=== PATIENT | female | born 1975 | race African-American/Black ===

== ENCOUNTER 2017-08-04 00:51 | Emergency (ER) | payer SELFPAY ==
[~2017-08-04] VITALS: Ht 154.9 cm; Wt 156.6 kg
[~2017-08-04 00:51] MED LIST: NO HOME MEDICATIONS
[2017-08-04] MEDS ORDERED: SODIUM CHLORIDE 0.9% 1,000 ML IV ONE (03:12)
[2017-08-04] MEDS ORDERED: ONDANSETRON HCL 4MG/2ML VIAL IV ONE (03:30)
[2017-08-04] MEDS ORDERED: CLINDAMYCIN 600 MG in DEXTROSE 5% WATER 50 ML IV ONE (03:30)
[2017-08-04] MEDS ORDERED: MORPHINE SULFATE 4 MG/ML CPJ (NOT FOR IM USE) IV ONE ×3 (03:30→07:30)
[2017-08-04] MEDS ORDERED: DEXAMETHASONE 10 MG/ML VIAL IV ONE (03:30)
[2017-08-04 03:38] LABS: CLARITY URINE CLOUDY (CLEAR); COLOR URINE YELLOW (YELLOW); GLUCOSE URINE NEGATIVE (NEGATIVE); KETONES URINE TRACE (NEGATIVE); LEUKOCYTE ESTERASE URINE NEGATIVE (NEGATIVE); NITRITE URINE NEGATIVE (NEGATIVE); OCCULT BLOOD URINE NEGATIVE (NEGATIVE); PH URINE 5.5 (4.5-8.0); PROTEIN URINE TRACE (NEGATIVE); SPECIFIC GRAVITY URINE 1.039 (1.005-1.030)
[2017-08-04 03:39] LABS: BASOPHILS % 0.9 % (0.0-2.0); EOSINOPHILS % 1.2 % (0.0-5.0); HEMATOCRIT. 40.3 % (36.0-48.0); HEMOGLOBIN. 13.7 g/dL (12.0-16.0); LYMPHOCYTES % 20.2 % (20.0-50.0); MEAN CORPUSCULAR HEMOGLOBIN 31.9 pg (28.0-32.0); MEAN CORPUSCULAR VOLUME 93.9 fL (81.0-99.0); MEAN PLATELET VOLUME 7.4 fl (7.4-10.4); MONOCYTES % 10.2 % (2.0-8.0); NEUTROPHILS % 67.5 % (40.0-76.0); PLATELET 484 x1000/uL (130-400); RED CELL DISTRIBUTION WIDTH 14.2 % (11.6-14.6)
[2017-08-04 03:43] LABS: CHLORIDE 103 mEq/L (98-107)
[2017-08-04 03:45] LABS: PROTHROMBIN TIME 10.9 sec (9.4-11.6)
[2017-08-04 03:51] LABS: CARBON DIOXIDE 25 mEq/L (21-32); ETHANOL BLOOD < 10 mg/dL
[2017-08-04 03:51] LABS: *AMPHETAMINES SCREEN URINE NEGATIVE (NEGATIVE); *BARBITURATES SCREEN URINE NEGATIVE (NEGATIVE); *BENZODIAZEPINES SCREEN URINE NEGATIVE (NEGATIVE); METHADONE URINE SCREEN NEGATIVE (NEGATIVE); OPIATES URINE SCREEN NEGATIVE (NEGATIVE); PHENCYCLIDINE URINE SCREEN NEGATIVE (NEGATIVE)
[2017-08-04 04:19] LABS: *COCAINE SCREEN URINE PRESUMTIVE POSITIVE (NEGATIVE); CANNABINOID URINE SCREEN PRESUMTIVE POSITIVE (NEGATIVE)
[2017-08-04] MEDS ORDERED: TETRACAINE/BENZOCAINE/BUTAMBEN 20 GM SPRAY MM SCH (05:45)
[2017-08-04] MEDS ORDERED: MORPHINE SULFATE 2 MG/ML CPJ (NOT FOR IM USE) IV ONE (07:15)
[2017-08-04 09:03] VITALS: BP 155/95
== END 2017-08-04 09:05 | disposition home or self-care (01) ==
LOC: ER 01:09
DX: J36 Peritonsillar abscess (principal); I10 Essential (primary) hypertension; F12.10 Cannabis abuse, uncomplicated; F17.200 Nicotine dependence, unspecified, uncomplicated; E66.01 Morbid (severe) obesity due to excess calories; Z88.6 Allergy status to analgesic agent
CPT/HCPCS: 10060; 36415; 80053; 80305; 81001; 81025; 85025; 85610; 87070; 87430; 96361; 96365; 96375; 96376; 99285; G0482; J1100; J2270; J2405; J3490; J7030; Z7610; J7060

== ENCOUNTER 2024-03-28 01:12 | Inpatient (IN) | payer MEDICAID ==
[~2024-03-28] VITALS: Ht 154.9 cm; Wt 167.8 kg
[~2024-03-28 01:12] MED LIST changes: +ALBU6.7H15 INH; +AZIT500T8 MT; -NO HOME MEDICATIONS; +P20 MT; +REV20 MT
[2024-03-28 03:09] LABS: DIFFERENTIAL COMMENT 0; EOSINOPHILS % 0.4 % (0.0-5.0); HEMATOCRIT. 37.8 % (36.0-48.0); HEMOGLOBIN. 12.1 g/dL (12.0-16.0); LYMPHOCYTES % 16.7 % (20.0-50.0); MEAN CORPUSCULAR HEMOGLOBIN 32.5 pg (28.0-32.0); MEAN CORPUSCULAR VOLUME 101.6 fL (81.0-99.0); MEAN PLATELET VOLUME 7.2 fl (7.4-10.4); MONOCYTES % 4.1 % (2.0-8.0); NEUTROPHILS % 77.8 % (40.0-76.0); PLATELET 365 x1000/uL (130-400); RED BLOOD CELL COUNT 3.72 mill/uL (4.2-5.4); RED CELL DISTRIBUTION WIDTH 14.5 % (11.6-14.6); WHITE BLOOD COUNT 7.9 x1000/uL (4.5-11.0)
[2024-03-28 03:24] LABS: CARBON DIOXIDE 21 mEq/L (21-32); CHLORIDE 105 mEq/L (98-107); POTASSIUM 4.3 mEq/L (3.5-5.1); SODIUM 139 mEq/L (136-145)
[2024-03-28 03:25] LABS: CALCIUM 9.4 mg/dL (8.7-10.4)
[2024-03-28 03:30] LABS: ETHANOL BLOOD 169 mg/dL (<10); GLUCOSE 83 mg/dL (70-105); UREA NITROGEN BLOOD 17 mg/dL (9-23)
[2024-03-28 03:31] LABS: TROPONIN I HIGH SENSITIVITY 28 ng/L (3.0-34)
[2024-03-28] MEDS ORDERED: ONDANSETRON HCL 4MG/2ML INJ IV PRN (04:45)
[2024-03-28] MEDS ORDERED: IPRATROPIUM/ALBUTEROL 0.5-3(2.5)MG/3ML NEB HHN PRN (04:45)
[2024-03-28] MEDS ORDERED: MAGNESIUM/ALUMINUM HYDROXIDE/SIMETHICONE 30ML UDC PO PRN (04:45)
[2024-03-28] MEDS ORDERED: CLONIDINE 0.1MG TABLET PO PRN (04:45)
[2024-03-28] MEDS ORDERED: ACETAMINOPHEN 325MG TABLET PO PRN (04:45)
[2024-03-28] MEDS ORDERED: LORAZEPAM 2MG/ML INJ IV PRN ×2 (04:45→17:30)
[2024-03-28] MEDS: FUROSEMIDE 40MG/4ML VIAL IVP NR (05:23)
[2024-03-28 05:31] LABS: TRIGLYCERIDE 65 mg/dL (0-150)
[2024-03-28 05:32] LABS: LDL CHOLESTEROL 121 mg/dL (5-100)
[2024-03-28 05:33] LABS: AMMONIA < 17 uMol/L (<32); CHOLESTEROL 195 mg/dL (<200); HDL CHOLESTEROL 65 mg/dL (>65); LACTIC ACID 2.3 mmol/L (0.4-2.0)
[2024-03-28 05:36] LABS: T4 FREE 0.87 ng/dL (0.89-1.76); THYROID STIMULATING HORMONE 0.12 uIU/mL (0.55-4.78)
[2024-03-28 05:38] LABS: D-DIMER 0.56 mg/L FEU (<0.50)
[2024-03-28] MEDS: MVI, ADULT NO.1 10 ML, THIAMINE HCL 100 MG, FOLIC ACID 1 MG in SODIUM CHLORIDE 0.9% 1,0... IV SCH (06:14)
[2024-03-28 06:29] LABS: CLARITY URINE CLEAR (CLEAR); COLOR URINE YELLOW (YELLOW); GLUCOSE URINE NEGATIVE (NEGATIVE); KETONES URINE NEGATIVE (NEGATIVE); LEUKOCYTE ESTERASE URINE NEGATIVE (NEGATIVE); NITRITE URINE NEGATIVE (NEGATIVE); OCCULT BLOOD URINE NEGATIVE (NEGATIVE); PH URINE 5.5 (4.5-8.0); PROTEIN URINE 1+ (NEGATIVE); SPECIFIC GRAVITY URINE 1.017 (1.005-1.030); UROBILINOGEN URINE 0.2 E.U./dL (0.2-1.0)
[2024-03-28 07:16] LABS: *AMPHETAMINES SCREEN URINE NEGATIVE (NEGATIVE)
[2024-03-28 07:17] LABS: *BARBITURATES SCREEN URINE NEGATIVE (NEGATIVE); *COCAINE SCREEN URINE PRESUMPTIVE POSITIVE (NEGATIVE); METHADONE URINE SCREEN NEGATIVE (NEGATIVE); OPIATES URINE SCREEN NEGATIVE (NEGATIVE); PHENCYCLIDINE URINE SCREEN NEGATIVE (NEGATIVE)
[2024-03-28 07:18] LABS: ECSTASY MDMA SCREEN URINE NEGATIVE (NEGATIVE)
[2024-03-28] MEDS: PANTOPRAZOLE SODIUM 40 MG/VIAL IV SCH (08:34)
[2024-03-28 08:41] LABS: SQUAMOUS EPITHELIAL CELL URINE 1+ /lpf (RARE/1+)
[2024-03-28 08:42] LABS: BACTERIA URINE 2+
[2024-03-28 08:44] LABS: MUCUS URINE TRACE /lpf (< = 2+); RBC URINE 0-2 /hpf (0-2); WBC URINE 0-2 /hpf (0-2)
[2024-03-28 09:27] LABS: TROPONIN I HIGH SENSITIVITY 29 ng/L (3.0-34)
[2024-03-28 09:28] LABS: CREATINE KINASE 175 IU/L (34-145)
[2024-03-28] MEDS: ACETAMINOPHEN 325MG TABLET PO PRN (09:43)
[2024-03-28 16:59] LABS: TROPONIN I HIGH SENSITIVITY 26 ng/L (3.0-34)
[2024-03-28 17:00] LABS: CREATINE KINASE 182 IU/L (34-145)
[2024-03-28] MEDS ORDERED: ACETYLCYSTEINE 200MG/ML 20% VIAL 4ML INH NR (17:30)
[2024-03-28 17:53] VITALS: BP 11/58; PULSE 84; RESP 20; TEMP 97.8
[2024-03-28] MEDS ORDERED: FUROSEMIDE 100MG/10ML VIAL IVP SCH (18:00)
[2024-03-28] MEDS: IPRATROPIUM/ALBUTEROL 0.5-3(2.5)MG/3ML NEB HHN SCH (18:00)
[2024-03-28 19:18] VITALS: BP 111/58; PULSE 84; RESP 20; TEMP 97
[2024-03-28 20:00] VITALS: BP 120/63; PULSE 70; RESP 20; TEMP 98
[2024-03-28 20:36] VITALS: PULSE 77; RESP 20; O2SAT 99
[2024-03-28] MEDS: ATORVASTATIN CALCIUM 40MG TABLET PO SCH (20:45)
[2024-03-28] MEDS: ENOXAPARIN 40MG/0.4ML SYR SUBCUT SCH (20:46)
[2024-03-28] MEDS: BUDESONIDE 0.5MG/2ML NEB HHN SCH (21:19)
[2024-03-28] MEDS: CHLORDIAZEPOXIDE 5 MG CAPSULE PO SCH (21:22)
[2024-03-28 22:08] LABS: ALANINE AMINOTRANSFERASE 17 IU/L (10-49); ALBUMIN 4.6 g/dL (3.2-4.8); ASPARTATE AMINOTRANSFERASE 18 IU/L (<34); BILIRUBIN DIRECT 0.2 mg/dL (<=3.0); BILIRUBIN TOTAL 0.5 mg/dL (0.1-1.0); PROTEIN TOTAL 7.3 g/dL (6.0-8.3)
[2024-03-28 22:39] LABS: BG BASE EXCESS -1.9 mmol/L (-2.0-2.0); BG CARBOXYHEMOGLOBIN 1.8 % (0.5-1.5); BG DEOXYHEMOGLOBIN 14.5 % (0.0-5.0); BG FRACTION INSPIRED OXYGEN 21; BG HCO3 ACT 23.4 mmol/L (22.0-26.0); BG OXYGEN SATURATION 85.2 % (92.0-98.5); BG OXYHEMOGLOBIN 83.7 % (94.0-97.0); BG PCO2 42.2 mmHg (35.0-45.0); BG PH 7.362 (7.350-7.450); BG PO2 52.8 mmHg (75.0-100.0); BG SAMPLE SITE RIGHT RADIAL; BG TOTAL HEMOGLOBIN 12.6 g/dL (12.0-18.0); BG VENT MODE ROOM AIR
[2024-03-29] VITALS (10 sets, daily range): BP systolic 110–135; BP diastolic 53–73; PULSE 65–96; RESP 14–20; TEMP 97.2–98; O2SAT 97–98
[2024-03-29 05:47] LABS: CHLORIDE 103 mEq/L (98-107); POTASSIUM 4.8 mEq/L (3.5-5.1); SODIUM 137 mEq/L (136-145)
[2024-03-29 05:48] LABS: CARBON DIOXIDE 30 mEq/L (21-32)
[2024-03-29 05:49] LABS: CALCIUM 9.4 mg/dL (8.7-10.4)
[2024-03-29 05:53] LABS: GLUCOSE 108 mg/dL (70-105); UREA NITROGEN BLOOD 30 mg/dL (9-23)
[2024-03-29 05:56] LABS: PHOSPHORUS 3.8 mg/dL (2.5-4.9)
[2024-03-29 06:11] LABS: BASOPHILS % 1.4 % (0.0-2.0); HEMOGLOBIN. 11.8 g/dL (12.0-16.0); LYMPHOCYTES % 30.6 % (20.0-50.0); MEAN CORPUSCULAR HGB CONC 32.8 g/dL (31.0-37.0); MEAN CORPUSCULAR VOLUME 97.7 fL (81.0-99.0); MEAN PLATELET VOLUME 7.8 fl (7.4-10.4); MONOCYTES % 9.7 % (2.0-8.0); NEUTROPHILS % 55.3 % (40.0-76.0); PLATELET 328 x1000/uL (130-400); RED BLOOD CELL COUNT 3.69 mill/uL (4.2-5.4); RED CELL DISTRIBUTION WIDTH 13.8 % (11.6-14.6); WHITE BLOOD COUNT 5.9 x1000/uL (4.5-11.0)
[2024-03-29] MEDS: LEVOTHYROXINE SODIUM 25MCG TABLET PO SCH ×2 (07:40→21:28)
[2024-03-29] MEDS ORDERED: THIAMINE HCL 100MG TABLET PO SCH (09:00)
[2024-03-29 09:22] LABS: FOLIC ACID (FOLATE) SERUM 12.41 ng/mL (>5.38)
[2024-03-29 09:23] LABS: VITAMIN B12 SERUM 681 pg/mL (211-911)
[2024-03-29] MEDS: MULTIVITAMINS,THER W-MINERALS TABLET PO SCH (09:59)
[2024-03-29] MEDS: FOLIC ACID 1MG TABLET PO SCH (09:59)
[2024-03-29] MEDS: THIAMINE HCL 100MG TABLET PO SCH (09:59)
[2024-03-29] MEDS ORDERED: FURO-151 PO (12:50)
[2024-03-29] MEDS: SILDENAFIL CITRATE 20MG TABLET PO SCH (21:28)
[2024-03-29] MEDS: FAMOTIDINE 20MG/2ML VIAL IV SCH (21:28)
[2024-03-29] MEDS: GUAIFENESIN 200MG/10ML SUGAR FREE UDC PO PRN (21:28)
[2024-03-29] MEDS: BUDESONIDE 0.5MG/2ML NEB HHN SCH (23:17)
[2024-03-30] VITALS (11 sets, daily range): BP systolic 119–141; BP diastolic 60–92; PULSE 68–87; RESP 18–24; TEMP 97–98.1; O2SAT 93–99
[2024-03-30 06:26] LABS: HEMATOCRIT 37.4 % (36.0-48.0); MEAN CORPUSCULAR HEMOGLOBIN 31.2 pg (28.0-32.0); MEAN CORPUSCULAR HGB CONC 32.2 g/dL (31.0-37.0); PLATELET 335 x1000/uL (130-400); RED BLOOD CELL COUNT 3.86 mill/uL (4.2-5.4); RED CELL DISTRIBUTION WIDTH 13.5 % (11.6-14.6); WHITE BLOOD COUNT 5.9 x1000/uL (4.5-11.0)
[2024-03-30 07:10] LABS: CARBON DIOXIDE 28 mEq/L (21-32); CHLORIDE 102 mEq/L (98-107); POTASSIUM 4.8 mEq/L (3.5-5.1); SODIUM 136 mEq/L (136-145)
[2024-03-30 07:12] LABS: CALCIUM 9.8 mg/dL (8.7-10.4)
[2024-03-30 07:16] LABS: CREATININE 1.1 mg/dL (0.6-1.0); GLUCOSE 114 mg/dL (70-105); UREA NITROGEN BLOOD 26 mg/dL (9-23)
[2024-03-30 08:08] LABS: FOLICLE STIMULATING HORMONE 57.6 mIU/mL (.); LUTEINIZING HORMONE 40.6 mIU/mL (.); PROLACTIN 19.4 ng/mL (4.8-33.4)
[2024-03-30] MEDS ORDERED: LIP40 PO (15:52)
[2024-03-30] MEDS ORDERED: FURO-151 PO (15:52)
[2024-03-30] MEDS ORDERED: LEVO25TA7 PO (15:52)
[2024-03-30] MEDS ORDERED: SILD20TA PO (15:52)
[2024-03-31] VITALS (11 sets, daily range): BP systolic 115–169; BP diastolic 57–81; PULSE 67–80; RESP 16–20; TEMP 97–97.9
[2024-03-31 07:16] LABS: HEMATOCRIT 36.4 % (36.0-48.0); HEMOGLOBIN 11.9 g/dL (12.0-16.0); MEAN CORPUSCULAR HEMOGLOBIN 31.6 pg (28.0-32.0); MEAN CORPUSCULAR HGB CONC 32.7 g/dL (31.0-37.0); MEAN CORPUSCULAR VOLUME 96.7 fL (81.0-99.0); PLATELET 302 x1000/uL (130-400); RED BLOOD CELL COUNT 3.77 mill/uL (4.2-5.4); RED CELL DISTRIBUTION WIDTH 13.5 % (11.6-14.6); WHITE BLOOD COUNT 5.4 x1000/uL (4.5-11.0)
[2024-03-31 07:20] LABS: CHLORIDE 102 mEq/L (98-107); POTASSIUM 4.6 mEq/L (3.5-5.1); SODIUM 137 mEq/L (136-145)
[2024-03-31 07:21] LABS: CARBON DIOXIDE 28 mEq/L (21-32)
[2024-03-31 07:26] LABS: GLUCOSE 156 mg/dL (70-105); UREA NITROGEN BLOOD 24 mg/dL (9-23)
[2024-03-31] MEDS: AMLODIPINE 5MG TABLET PO SCH (18:09)
[2024-04-01] VITALS (10 sets, daily range): BP systolic 116–155; BP diastolic 46–91; PULSE 67–82; RESP 16–20; TEMP 96.9–98.3; O2SAT 96–98
[2024-04-01 06:59] LABS: HEMATOCRIT 38.1 % (36.0-48.0); HEMOGLOBIN 12.6 g/dL (12.0-16.0); MEAN CORPUSCULAR VOLUME 96.8 fL (81.0-99.0); PLATELET 329 x1000/uL (130-400); RED BLOOD CELL COUNT 3.94 mill/uL (4.2-5.4); RED CELL DISTRIBUTION WIDTH 13.5 % (11.6-14.6); WHITE BLOOD COUNT 5.3 x1000/uL (4.5-11.0)
[2024-04-01 07:02] LABS: CHLORIDE 103 mEq/L (98-107); POTASSIUM 4.5 mEq/L (3.5-5.1); SODIUM 138 mEq/L (136-145)
[2024-04-01 07:03] LABS: CARBON DIOXIDE 28 mEq/L (21-32)
[2024-04-01 07:04] LABS: CALCIUM 10.4 mg/dL (8.7-10.4)
[2024-04-01 07:08] LABS: CREATININE 0.9 mg/dL (0.6-1.0); GLUCOSE 111 mg/dL (70-105)
[2024-04-01 07:09] LABS: UREA NITROGEN BLOOD 23 mg/dL (9-23)
[2024-04-02] VITALS (9 sets, daily range): BP systolic 121–146; BP diastolic 47–80; PULSE 67–82; RESP 18–20; TEMP 97.3–98.2; O2SAT 94–100
== END 2024-04-02 19:20 | disposition home or self-care (01) | DRG 194 ==
LOC: ER 01:31 → 5WST 04:27 → 7WST 16:33
PROVIDERS: ADMIT Preventive Medicine Clinical Informatics; ATTEND Preventive Medicine Clinical Informatics
DX: I11.0 Hypertensive heart disease with heart failure (principal); J96.20 Acute and chronic respiratory failure, unspecified whether with hypoxia or hypercapnia; G92.8 Other toxic encephalopathy; J44.1 Chronic obstructive pulmonary disease with (acute) exacerbation; E87.20 Acidosis, unspecified; I27.20 Pulmonary hypertension, unspecified; Z68.44 Body mass index [BMI] 60.0-69.9, adult; I50.33 Acute on chronic diastolic (congestive) heart failure; D53.9 Nutritional anemia, unspecified; E11.51 Type 2 diabetes mellitus with diabetic peripheral angiopathy without gangrene; F10.129 Alcohol abuse with intoxication, unspecified; E11.65 Type 2 diabetes mellitus with hyperglycemia; E66.01 Morbid (severe) obesity due to excess calories; E78.00 Pure hypercholesterolemia, unspecified; G47.30 Sleep apnea, unspecified; Y90.6 Blood alcohol level of 120-199 mg/100 ml; Z86.16 Personal history of COVID-19; Z98.891 History of uterine scar from previous surgery; M71.21 Synovial cyst of popliteal space [Baker], right knee; Z59.01 Sheltered homelessness; K59.00 Constipation, unspecified; E03.8 Other specified hypothyroidism; F17.210 Nicotine dependence, cigarettes, uncomplicated; Z88.6 Allergy status to analgesic agent; Z91.148 Patient's other noncompliance with medication regimen for other reason; D75.89 Other specified diseases of blood and blood-forming organs; Z79.899 Other long term (current) drug therapy
CPT/HCPCS: 36415; 36600; 71045; 80048; 80061; 80076; 80305; 80320; 81003; 82140; 82375; 82533; 82550; 82607; 82746; 82805; 83001; 83002; 83036; 83605; 83735; 83880; 83970; 84100; 84146; 84439; 84443; 84481; 84484; 85025; 85027; 85379; 93005; 93306; 93923; 93971; 94640; 99285; C9113; J1650; J1940; J3411; J3490; J7030; J7626; G0480